=== PATIENT | male | born 1980 | race Asian ===

== ENCOUNTER 2016-09-05 16:39 | Emergency (ER) | payer OTHER ==
[~2016-09-05] VITALS: Ht 175.3 cm; Wt 90.7 kg
[2016-09-05 17:16] LABS: PLATELET COUNT 254 K/uL (142-355)
[2016-09-05 17:28] LABS: POTASSIUM 4.7 mmol/L (3.6-5.2)
[2016-09-05 19:14] VITALS: BP 129/81; TEMP 98.6
== END 2016-09-05 19:16 | disposition home or self-care (01) ==
LOC: ED 16:39
PROVIDERS: Family Medicine
DX: I10 Essential (primary) hypertension (principal); N28.9 Disorder of kidney and ureter, unspecified
CPT/HCPCS: 36415; 80053; 81000; 85027; 99283

== ENCOUNTER 2017-12-10 20:34 | Emergency (ER) | payer OTHER ==
[~2017-12-10] VITALS: Ht 172.7 cm; Wt 92.2 kg
[2017-12-10 21:50] VITALS: BP 175/90; TEMP 99
== END 2017-12-10 21:51 | disposition home or self-care (01) ==
LOC: ED 20:34
DX: K08.89 Other specified disorders of teeth and supporting structures (principal)
CPT/HCPCS: 96372; 99282; J1885

== ENCOUNTER 2019-05-22 17:07 | Emergency (ER) | payer OTHER ==
[~2019-05-22] VITALS: Ht 172.7 cm; Wt 92.1 kg
[2019-05-22 18:10] LABS: PLATELET COUNT 233 K/uL (142-355)
[2019-05-22 18:34] LABS: POTASSIUM 3.2 mmol/L (3.6-5.2); SODIUM 139 mmol/L (136-145)
[2019-05-22 18:39] LABS: PARTIAL THROMBOPLASTIN TIME 26.8 SECONDS (24.5-33.6)
[2019-05-22 20:05] VITALS: BP 173/97; TEMP 98.1
== END 2019-05-22 20:17 | disposition home or self-care (01) ==
LOC: ED 17:07
PROVIDERS: Hospitalist
DX: R07.89 Other chest pain (principal); K21.9 Gastro-esophageal reflux disease without esophagitis; N18.6 End stage renal disease; Z99.2 Dependence on renal dialysis; R06.02 Shortness of breath
CPT/HCPCS: 36415; 80053; 81000; 82550; 83880; 84484; 85027; 85610; 85730; 93005; 99283

== ENCOUNTER 2019-08-01 10:45 | Emergency (ER) | payer OTHER ==
[~2019-08-01] VITALS: Ht 172.7 cm; Wt 93.0 kg
[2019-08-01 11:50] LABS: PLATELET COUNT 231 K/uL (142-355)
[2019-08-01 12:01] LABS: POTASSIUM 3.8 mmol/L (3.6-5.2)
[2019-08-01 13:45] VITALS: BP 119/83; TEMP 97.6
== END 2019-08-01 13:45 | disposition home or self-care (01) ==
LOC: ED 10:45
PROVIDERS: Student in an Organized Health Care Education/Training Program
DX: R11.2 Nausea with vomiting, unspecified (principal)
CPT/HCPCS: 36415; 80053; 81000; 83690; 83735; 85027; 96360; 96375; 99284; J2405

== ENCOUNTER 2020-02-11 09:21 | Emergency (ER) | payer OTHER ==
[~2020-02-11] VITALS: Ht 172.7 cm; Wt 93.9 kg
[2020-02-11 09:48] VITALS: BP 122/71; TEMP 98.6
[2020-02-11 10:53] LABS: PLATELET COUNT 233 K/uL (142-355)
[2020-02-11 11:06] LABS: POTASSIUM 5.9 mmol/L (3.6-5.2); SODIUM 138 mmol/L (136-145)
== END 2020-02-11 12:15 | disposition home or self-care (01) ==
LOC: ED 09:21
PROVIDERS: General Practice
DX: S29.011A Strain of muscle and tendon of front wall of thorax, initial encounter (principal); X58.XXXA Exposure to other specified factors, initial encounter; Y93.89 Activity, other specified; Y92.89 Other specified places as the place of occurrence of the external cause; I10 Essential (primary) hypertension
CPT/HCPCS: 36415; 80053; 83735; 84484; 85027; 93005; 96372; 99283; J2360

== ENCOUNTER 2020-05-20 09:48 | Emergency (ER) | payer OTHER ==
[~2020-05-20] VITALS: Ht 172.7 cm; Wt 91.6 kg
[2020-05-20 10:01] VITALS: TEMP 98.9
[2020-05-20 10:23] LABS: PLATELET COUNT 218 K/uL (142-355)
[2020-05-20 10:38] LABS: POTASSIUM 3.8 mmol/L (3.6-5.2)
[2020-05-20 11:34] VITALS: BP 139/75
== END 2020-05-20 11:34 | disposition home or self-care (01) ==
LOC: ED 09:48
PROVIDERS: Hospitalist
DX: K31.84 Gastroparesis (principal); R11.2 Nausea with vomiting, unspecified; N18.6 End stage renal disease; Z99.2 Dependence on renal dialysis; K59.09 Other constipation
CPT/HCPCS: 80053; 81000; 82150; 83690; 85027; 96360; 96375; 99284; J2405

== ENCOUNTER 2020-06-09 14:42 | Emergency (ER) | payer OTHER ==
[~2020-06-09] VITALS: Ht 172.7 cm; Wt 88.9 kg
[2020-06-09] MEDS ORDERED: LABETALOL100 MG (15:22)
[2020-06-09] MEDS ORDERED: HYDRALAZINE10 MG PO (15:22)
[2020-06-09] MEDS ORDERED: CLONIDINE0.3 MG PO (15:23)
[2020-06-09] MEDS ORDERED: AMLO2.5T PO (15:23)
[2020-06-09] MEDS ORDERED: ASA LOW DOSE81 MG (15:24)
[2020-06-09] MEDS ORDERED: COZAAR25 MG PO (15:24)
[2020-06-09 15:56] LABS: PLATELET COUNT 199 K/uL (142-355)
[2020-06-09 16:13] LABS: POTASSIUM 4.6 mmol/L (3.6-5.2)
[2020-06-09 19:24] VITALS: BP 142/77; TEMP 98.4
== END 2020-06-09 19:25 | disposition home or self-care (01) ==
LOC: ED 14:42
PROVIDERS: Hospitalist
DX: E11.43 Type 2 diabetes mellitus with diabetic autonomic (poly)neuropathy (principal); K31.84 Gastroparesis; R11.2 Nausea with vomiting, unspecified; N18.6 End stage renal disease; Z99.2 Dependence on renal dialysis
CPT/HCPCS: 36415; 80053; 80320; 81000; 82150; 83690; 85027; 96360; 96375; 99284; J2405

== ENCOUNTER 2020-06-23 17:09 | Emergency (ER) | payer OTHER ==
[~2020-06-23] VITALS: Ht 172.7 cm; Wt 90.3 kg
[~2020-06-23 17:09] MED LIST: AMLO2.5T PO; ASA LOW DOSE81 MG; CLONIDINE0.3 MG PO; COZAAR25 MG PO; HYDRALAZINE10 MG PO; LABETALOL100 MG
[2020-06-23 18:06] LABS: PLATELET COUNT 225 K/uL (142-355)
[2020-06-23 18:34] LABS: POTASSIUM 4.3 mmol/L (3.6-5.2); SODIUM 138 mmol/L (136-145)
[2020-06-23 19:17] VITALS: BP 131/80; TEMP 98.3
== END 2020-06-23 19:17 | disposition home or self-care (01) ==
LOC: ED 17:09
PROVIDERS: Family Medicine
DX: M94.0 Chondrocostal junction syndrome [Tietze] (principal); R07.89 Other chest pain
CPT/HCPCS: 80053; 82550; 82553; 83605; 84484; 85027; 93005; 99283

== ENCOUNTER 2020-07-10 11:38 | Emergency (ER) | payer OTHER ==
[~2020-07-10] VITALS: Ht 172.7 cm; Wt 90.3 kg
[2020-07-10 11:52] VITALS: TEMP 97.7
[2020-07-10 12:48] LABS: PLATELET COUNT 218 K/uL (142-355)
[2020-07-10 13:13] LABS: PARTIAL THROMBOPLASTIN TIME 24.3 SECONDS (24.5-33.6)
[2020-07-10 13:34] LABS: POTASSIUM 7.7 mmol/L (3.6-5.2)
[2020-07-10 14:24] VITALS: BP 138/75
== END 2020-07-10 14:25 | disposition home or self-care (01) ==
LOC: ED 11:38
PROVIDERS: Family Medicine
DX: N18.6 End stage renal disease (principal); Z99.2 Dependence on renal dialysis; E87.5 Hyperkalemia; G45.8 Other transient cerebral ischemic attacks and related syndromes; Z03.818 Encounter for observation for suspected exposure to other biological agents ruled out
CPT/HCPCS: 80053; 81000; 82728; 84155; 85027; 85379; 85610; 85730; 87635; 93005; 99283; U0003

== ENCOUNTER 2020-08-20 15:08 | Emergency (ER) | payer OTHER ==
[~2020-08-20] VITALS: Ht 172.7 cm; Wt 90.3 kg
[2020-08-20 15:25] VITALS: BP 111/66; TEMP 97.7
== END 2020-08-20 17:10 | disposition home or self-care (01) ==
LOC: ED 15:08
DX: R00.2 Palpitations (principal)
CPT/HCPCS: 93005; 99283

== ENCOUNTER 2021-03-25 13:13 | Emergency (ER) | payer OTHER ==
[~2021-03-25] VITALS: Ht 172.7 cm; Wt 90.3 kg
[2021-03-25 13:24] VITALS: TEMP 97.9
[2021-03-25 16:05] VITALS: BP 117/82
== END 2021-03-25 16:05 | disposition home or self-care (01) ==
LOC: ED 13:13
DX: S40.011A Contusion of right shoulder, initial encounter (principal); S46.811A Strain of other muscles, fascia and tendons at shoulder and upper arm level, right arm, initial encounter; W18.09XA Striking against other object with subsequent fall, initial encounter; Y92.89 Other specified places as the place of occurrence of the external cause
CPT/HCPCS: 99283

== ENCOUNTER 2021-06-18 11:42 | Emergency (ER) | payer OTHER ==
[~2021-06-18] VITALS: Ht 172.7 cm; Wt 90.3 kg
[2021-06-18 11:49] VITALS: TEMP 97.3
[2021-06-18 12:43] LABS: PLATELET COUNT 136 K/uL (142-355)
[2021-06-18 13:03] LABS: POTASSIUM 6.6 mmol/L (3.6-5.2)
[2021-06-18 16:00] VITALS: BP 160/81
== END 2021-06-18 16:10 | disposition home or self-care (01) ==
LOC: ED 11:42
PROVIDERS: Emergency Medicine Emergency Medical Services
DX: N18.9 Chronic kidney disease, unspecified (principal); E87.5 Hyperkalemia; J45.909 Unspecified asthma, uncomplicated
CPT/HCPCS: 36415; 80053; 81002; 82150; 83690; 83735; 85027; 93005; 94664; 96360; 96365; 96374; 96375; 99284; J0610; J1815; J2405; J3490; J7060

== ENCOUNTER 2021-07-17 09:43 | Emergency (ER) | payer OTHER ==
[~2021-07-17] VITALS: Ht 172.7 cm; Wt 90.3 kg
[2021-07-17 10:56] LABS: PLATELET COUNT 171 K/uL (142-355)
[2021-07-17 11:03] LABS: POTASSIUM 4.4 mmol/L (3.6-5.2)
[2021-07-17 12:00] VITALS: BP 123/84; TEMP 97.8
== END 2021-07-17 12:00 | disposition home or self-care (01) ==
LOC: ED 09:43
PROVIDERS: Emergency Medicine Emergency Medical Services
DX: K80.50 Calculus of bile duct without cholangitis or cholecystitis without obstruction (principal); K80.80 Other cholelithiasis without obstruction
CPT/HCPCS: 36415; 80053; 82150; 83690; 85027; 96360; 96375; 99284; J2405

== ENCOUNTER 2021-12-20 12:30 | Outpatient (CLI) | payer OTHER ==
[2021-12-20 12:52] LABS: POTASSIUM 4.3 mmol/L (3.6-5.2)
== END 2021-12-20 19:29 | disposition home or self-care (01) ==
LOC: LABW 12:30
PROVIDERS: ATTEND Internal Medicine
DX: N18.5 Chronic kidney disease, stage 5 (principal)
CPT/HCPCS: 36415; 80048

== ENCOUNTER 2022-02-21 09:49 | Emergency (ER) | payer OTHER ==
[~2022-02-21] VITALS: Ht 172.7 cm; Wt 97.1 kg
[2022-02-21 09:57] VITALS: BP 139/85; TEMP 97.4
[2022-02-21 10:12] LABS: PLATELET COUNT 300 K/uL (142-355)
[2022-02-21 10:30] LABS: POTASSIUM 4.3 mmol/L (3.6-5.2)
== END 2022-02-21 12:48 | disposition home or self-care (01) ==
LOC: ED 09:49
PROVIDERS: Hospitalist
DX: R10.84 Generalized abdominal pain (principal); R11.2 Nausea with vomiting, unspecified; R19.7 Diarrhea, unspecified; N18.6 End stage renal disease; Z99.2 Dependence on renal dialysis; Z20.822 Contact with and (suspected) exposure to COVID-19
CPT/HCPCS: 36415; 80053; 80320; 83690; 85027; 87040; 87635; 93005; 96360; 96361; 96365; 96375; 99284; J1170; J1956; J2405; U0003

== ENCOUNTER 2022-03-14 12:21 | Emergency (ER) | payer OTHER ==
[~2022-03-14] VITALS: Ht 172.7 cm; Wt 96.2 kg
[2022-03-14 12:28] VITALS: TEMP 98.2
[2022-03-14 13:11] LABS: PLATELET COUNT 221 K/uL (142-355)
[2022-03-14 13:25] LABS: POTASSIUM 3.9 mmol/L (3.6-5.2)
[2022-03-14 16:30] VITALS: BP 139/79
== END 2022-03-14 16:56 | disposition home or self-care (01) ==
LOC: ED 12:21
PROVIDERS: Emergency Medicine
DX: R06.02 Shortness of breath (principal); N18.6 End stage renal disease; Z99.2 Dependence on renal dialysis; R22.0 Localized swelling, mass and lump, head
CPT/HCPCS: 80053; 83880; 84484; 85027; 85379; 93005; 99283

== ENCOUNTER 2022-08-12 10:37 | Outpatient (CLI) | payer OTHER ==
[2022-08-12 11:02] LABS: PLATELET COUNT 326 K/uL (142-355)
== END 2022-08-12 19:17 | disposition home or self-care (01) ==
LOC: LABW 10:37
PROVIDERS: ATTEND Internal Medicine Gastroenterology
DX: K62.5 Hemorrhage of anus and rectum (principal); N18.6 End stage renal disease; Z12.11 Encounter for screening for malignant neoplasm of colon
CPT/HCPCS: 36415; 85027

== ENCOUNTER 2022-09-30 16:42 | Emergency (ER) | payer OTHER ==
[~2022-09-30] VITALS: Ht 172.7 cm; Wt 96.2 kg
[2022-09-30 16:47] VITALS: BP 121/71; TEMP 98.1
[2022-09-30 17:18] LABS: PLATELET COUNT 273 K/uL (142-355)
[2022-09-30 17:33] LABS: POTASSIUM 3.1 mmol/L (3.6-5.2)
== END 2022-09-30 18:26 | disposition home or self-care (01) ==
LOC: ED 16:42
PROVIDERS: Emergency Medicine
DX: R42 Dizziness and giddiness (principal); N18.6 End stage renal disease; Z99.2 Dependence on renal dialysis; E87.6 Hypokalemia; E11.65 Type 2 diabetes mellitus with hyperglycemia; E66.09 Other obesity due to excess calories; Z98.890 Other specified postprocedural states
CPT/HCPCS: 80053; 80320; 83880; 85027; 99283

== ENCOUNTER 2022-12-26 09:16 | Emergency (ER) | payer OTHER ==
[~2022-12-26] VITALS: Ht 172.7 cm; Wt 96.6 kg
[2022-12-26 09:20] VITALS: BP 122/87; TEMP 98.2
[2022-12-26 09:42] LABS: PLATELET COUNT 260 K/uL (142-355)
[2022-12-26 10:00] LABS: POTASSIUM 3.1 mmol/L (3.6-5.2)
== END 2022-12-26 13:53 | disposition home or self-care (01) ==
LOC: ED 09:16
PROVIDERS: Family Medicine
DX: M94.0 Chondrocostal junction syndrome [Tietze] (principal)
CPT/HCPCS: 80053; 84484; 85027; 85379; 93005; 99284; Q9963